=== PATIENT | female | born 1995 | race Two or more races ===

== ENCOUNTER 2018-01-17 06:44 | Emergency (ER) | payer OTHER ==
[~2018-01-17] VITALS: Ht 149.9 cm; Wt 43.1 kg
== END 2018-01-17 13:03 | disposition home or self-care (01) ==
LOC: ER 06:44
DX: O34.81 Maternal care for other abnormalities of pelvic organs, first trimester (principal); N83.292 Other ovarian cyst, left side; N83.291 Other ovarian cyst, right side; O23.41 Unspecified infection of urinary tract in pregnancy, first trimester; Z34.01 Encounter for supervision of normal first pregnancy, first trimester